=== PATIENT | male | born 1990 | race Caucasian/White ===

== ENCOUNTER 2018-04-03 22:39 | Emergency (ER) | payer OTHER ==
[~2018-04-03] VITALS: Ht 182.9 cm; Wt 127.0 kg
[2018-04-03 22:57] VITALS: Ht 182.9 cm; Wt 127.0 kg
[2018-04-04 00:57] VITALS: BP 120/64
== END 2018-04-04 00:57 | disposition home or self-care (01) ==
LOC: ED 22:39
DX: S92.354A Nondisplaced fracture of fifth metatarsal bone, right foot, initial encounter for closed fracture (principal); S93.401A Sprain of unspecified ligament of right ankle, initial encounter; X58.XXXA Exposure to other specified factors, initial encounter; Y93.89 Activity, other specified; Y92.89 Other specified places as the place of occurrence of the external cause; Y99.8 Other external cause status

== ENCOUNTER 2019-03-01 23:24 | Emergency (ER) | payer OTHER ==
[~2019-03-01] VITALS: Ht 182.9 cm; Wt 124.3 kg
[2019-03-01 23:36] VITALS: Ht 182.9 cm; Wt 124.3 kg
[2019-03-02 02:06] VITALS: BP 125/52
== END 2019-03-02 02:06 | disposition home or self-care (01) ==
LOC: ED 23:24
DX: S91.202A Unspecified open wound of left great toe with damage to nail, initial encounter (principal); X58.XXXA Exposure to other specified factors, initial encounter; Y93.67 Activity, basketball; Y92.89 Other specified places as the place of occurrence of the external cause; Y99.8 Other external cause status
CPT/HCPCS: J1885; J2001